=== PATIENT | male | born 1985 | race African-American/Black ===

== ENCOUNTER 2024-05-21 06:40 | Emergency (ER) | payer SELFPAY ==
[~2024-05-21] VITALS: Ht 177.8 cm; Wt 68.0 kg
[2024-05-21 06:51] VITALS: O2SAT 98
[2024-05-21] MEDS ORDERED: LIDOCAINE HCL 1% 20ML VIAL INFIL ONE (07:15)
[2024-05-21 07:19] VITALS: BP 132/108; PULSE 80; RESP 18; TEMP 98.5; O2SAT 100
== END 2024-05-21 09:14 ==
LOC: ER 06:40
DX: S81.812A Laceration without foreign body, left lower leg, initial encounter (principal); W01.0XXA Fall on same level from slipping, tripping and stumbling without subsequent striking against object, initial encounter; Y93.89 Activity, other specified; Y92.89 Other specified places as the place of occurrence of the external cause; Y99.8 Other external cause status
CPT/HCPCS: 99281